=== PATIENT | female | born 2000 | race Caucasian/White ===

== ENCOUNTER → 2020-10-13 | Outpatient (CLI) | payer OTHER | LOC: LAB 15:16 | PROVIDERS: ATTEND Nurse Practitioner Family | DX: R79.89 Other specified abnormal findings of blood chemistry (principal) | CPT/HCPCS: 36415; 84484 ==

== ENCOUNTER 2020-11-02 20:43 | Emergency (ER) | payer OTHER ==
[~2020-11-02] VITALS: Ht 182.9 cm; Wt 69.4 kg
[2020-11-02 20:50] VITALS: BP 133/75
--- NOTE | 2020-11-02 21:00 | PHYS DOC ---
Past History Past Medical History: No Pertinent History Past Surgical History: No Surgical History Alcohol Use: None Adult General Chief Complaint Chief Complaint: HAND PROBLEM HPI HPI Patient is an otherwise healthy 20-year-old female who presents with right thumb pain. States she was playing flag football just before coming in, grabbed a flag and twisted her thumb backwards. Denies any other injuries. States it hurts right at the base of the thumb, 5 out of 10, dull and achy in nature. Review of Systems Review of Systems Review of systems otherwise unremarkable except noted in HPI Allergies Allergies Allergies Coded Allergies Type Severity Reaction Last Updated Verified No Known Drug Allergies 11/02/20 No Physical Exam Physical Exam Constitutional: Well developed, well nourished, no acute distress, non-toxic appearance. [] Skin: Warm, dry, no erythema, no rash. [] Back: No tenderness, no CVA tenderness. [] Extremities: Patient has tenderness at the MTP of the right first digit with no deformity, swelling or bruising noted. Neurovascular exam intact. Neurologic: Alert and oriented X 3, normal motor function, normal sensory function, no focal deficits noted. [] Psychologic: Affect normal, judgement normal, mood normal. [] Current Patient Data Vital Signs Vital Signs Date Time Temp Pulse Resp B/P (MAP) Pulse Ox O2 Delivery O2 Flow Rate FiO2 11/02/20 20:50 97.5 78 16 133/75 (94) 100 Room Air EKG EKG [] Radiology/Procedures Radiology/Procedures [] Heart Score Risk Factors: Risk Factors: DM, Current or recent (<one month) smoker, HTN, HLP, family history of CAD, obesity. Risk Scores: Risk Factors: DM, Current or recent (<one month) smoker, HTN, HLP, family history of CAD, obesity. Course & Med Decision Making Course & Med Decision Making Patient is a 20-year-old female who presents with right thumb plain after getting it caught while playing flag football Vital signs not concerning. Physical exam noted above. Denied need for pain medication or ice at this time. Imaging not concerning. Advised on pain management at home. Advised to follow- up with primary care physician as needed. Advised to cease sports and exercise related activities until symptoms resolve. Gave return precautions to the ED. Patient grateful, verbalized understanding and agreed with plan of discharge. [] Dragon Disclaimer Dragon Disclaimer This electronic medical record was generated, in whole or in part, using a voice recognition dictation system. Departure Departure: Impression: Primary Impression: Thumb pain Disposition: 01 DC HOME SELF CARE/HOMELESS Condition: GOOD Referrals: PCP,HENRIETTA (PCP) Patient Instructions: RICE - Routine Care for Injuries Additional Instructions: Please read the attached information. Please begin to use Tylenol, ibuprofen and ice as needed for pain control at home. Please cease sports and exercise activities until symptoms resolve. Please follow-up with your primary care physician as needed. Please come back to the ED with new or concerning symp toms. JUNE HILL MD Nov 02, 2020 21:00
--- NOTE | 2020-11-02 21:08 | RAD ---
Study: XR HAND_RIGHT 3 VIEWS Indication: Injury. Right thumb pain. Comparison: None. Findings: No acute fracture. Alignment is maintained as are the joint spaces. No retained radiopaque foreign shahana dy. Impression: No acute osseous abnormality. Electronically signed by: MICHAELLE SNYDER MD (11/02/2020 9:06 PM) [facility]
== END 2020-11-02 21:17 | disposition home or self-care (01) ==
LOC: ER 20:43
DX: M79.644 Pain in right finger(s) (principal)
CPT/HCPCS: 73130; 99283

== ENCOUNTER 2020-11-14 04:17 | Emergency (ER) | payer OTHER ==
[~2020-11-14] VITALS: Ht 180.3 cm; Wt 65.9 kg
--- NOTE | 2020-11-14 04:24 | PHYS DOC ---
Past History Past Medical History: No Pertinent History Past Medical History Hx of COVID 2019 Past Surgical History: No Surgical History Alcohol Use: None General Adult HPI: HPI: '.." I got this severe headache..it been constant since sunday night.. I usually never get sick from anything.. I did get COVID in July.. ".. I did take a gram of tylenol at 11 pm. 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 Pt. patient denies any trauma. No history of prior migraine. 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 Patient states onset of headache has been constant. Does seem to have some frontal components and not relieved by [id number] Tylenol and ibuprofen. Patient denies any illicit drug use. Patient denies any history immunosuppression. Did have Covid in July. No history of recent travel outside the [place] area.. No history of trauma. No history of bad food intake. Review of Systems: Review of Systems: Constitutional: Denies fever or chills Eyes: Denies change in visual acuity HENT: Denies nasal congestion or sore throat Respiratory: Denies cough or shortness of breath Cardiovascular: Denies chest pain or edema GI: Complaints of nausea, . Complains of vomiting,. Denies bloody stools or diarrhea : Denies dysuria Musculoskeletal: Denies back pain or joint pain Integument: Denies rash Neurologic: Complains of headache,. Denies focal weakness or sensory changes Endocrine: Denies polyuria or polydipsia Lymphatic: Denies swollen glands Psychiatric: Denies depression or anxiety Family History: Family History: Noncontributory Current Medications: Current Meds: See nursing for home meds Allergies: Allergies: Allergies Coded Allergies Type Severity Reaction Last Updated Verified No Known Drug Allergies 11/02/20 No Physical Exam: PE: Constitutional: Well developed, well nourished, moderate acute distress, non-toxic appearance. [] Red hair HENT: Normocephalic, atraumatic, bilateral external ears normal, oropharynx dry, no oral exudates, nose normal. Eyes: PERRLA, EOMI, conjunctiva normal, no discharge. [] Astigmatism and myopia. Wears contacts. Neck: Normal range of motion, no tenderness, supple, no stridor. [] Cardiovascular: Tachycardia heart rate regular rhythm, no murmur [] Lungs & Thorax: Bilateral breath sounds equal at apex on auscultation [] Abdomen: Bowel sounds epigastric tenderness,, soft, no tenderness, no masses, no pulsatile masses. [] Skin: Warm, dry, no erythema, no rash. [] Back: No tenderness, no CVA tenderness. [] Extremities: No tenderness, no cyanosis, no clubbing, ROM intact, no edema. [] Neurologic: Alert and oriented X 3, normal motor function, normal sensory function, no focal deficits noted. [DTRs +2 patella and brachial. Beader equal. Ambulatory without problems. No field loss. Air conduction more than bone conduction and no lateralization with:128 tunning fork Psychologic: Affect anxious, judgement normal, mood normal. [] EKG: EKG: My interpretation of EKG shows a sinus tachycardia. There is some nonspecific T wave changes in anterior leads. [] Radiology/Procedures: Radiology/Procedures: [][place] [address] IMAGING REPORT Signed PATIENT: SYDNIE GOLDBERG ACCOUNT: [id number] : 2000 LOCATION: ER AGE: 20 SEX: F EXAM STATUS: REG ER ORD. PHYSICIAN: AL FLORENCE MD REASON: severe headache- frontal, x 3 days PROCEDURE: CT HEAD AND MAXILLOFACIAL WO CT head without contrast: Reason for examination: Severe frontal headache for 3 days. Helical images were obtained through the brain. No contrast was administered. Ventricular systems are symmetric and not dilated. No midline shift is seen. There is no evidence of intracranial hemorrhage, infarct, mass or edema. No abnormalities of seen at the orbits. The paranasal sinuses and mastoid air cells are clear. No acute skull abnormality is are seen. IMPRESSION: No acute intracranial abnormalities evident. CT maxillofacial without contrast: Helical images were obtained through the maxillofacial structures with no contrast administered. Reconstruction was performed in sagittal and coronal planes. The paranasal sinuses are clear and the bae of the sinuses are intact. No abnormalities of seen at the orbital structures. Zygomatic arches are intact. Nasal bones are intact. No abnormality seen at the mandible. No abnormality seen in the visualized portion of the cervical spine. Temporomandibular joints are symmetric. There does appear to be deviation of the nasal septum to the right. Nasal turbinates are symmetric. IMPRESSION: Deviation of the nasal septum to the right. No acute sinus disease. No acute maxillofacial abnormality evident. Exposure: One or more of the following individualized dose reduction techniques were utilized for this examination: 1. Automated exposure control 2. Adjustment of the mA and/or kV according to patient size 3. Use of iterative reconstruction technique. Electronically signed by: Adelaide Nielson MD (11/14/2020 5:30 AM) [facility] DICTATED AND SIGNED BY: ADELAIDE NIELOSN MD DATE: 11/14/20524 CC: AL FLORENCE MD; PCP,NO ~MTH0 0 Heart Score: C/O Chest Pain: N/A HEART Score for Chest Pain: HEART Score for Chest Pain Response (Comments) Value History Slighlty/Non-Suspicious 0 ECG Nonspecific Repolarizatio 1 Age < 45 0 Risk Factors No Risk Factors 0 Troponin < Normal Limit 0 Total 1 Risk Factors: Risk Factors: DM, Current or recent (<one month) smoker, HTN, HLP, family history of CAD, obesity. Risk Scores: Score 0 - 3: 2.5% MACE over next 6 weeks - Discharge Home Score 4 - 6: 20.3% MACE over next 6 weeks - Admit for Clinical Observation Score 7 - 10: 72.7% MACE over next 6 weeks - Early Invasive Strategies Course & Med Decision Making: Course & Med Decision Making Pertinent Labs and Imaging studies reviewed. (See chart for details) Discussed risk and benefits of spinal tap. Patient declines spinal tap at this time. Patient reports marked improvement of symptoms after Toradol and Compazine with Benadryl. Patient requesting discharge. Patient take Zofran 8 mg up to 4 times a day for active nausea and vomiting. Clear fluids. Tylenol and ibuprofen for pain. For marked pain may take Vicoprofen. Must have reexam if no improvement. Clear fluid diet until nausea and vomiting has resolved completely. No solids or milk products allow bowel rest. Return if any concerns. Follow-up primary care. Impression: 1. Intractable Headache x 3 Days-suspect viral 2. Nausea and Vomiting 3. Viral syndrome seen 4. Dehydration [] Dragon Disclaimer: Dragon Disclaimer: This electronic medical record was generated, in whole or in part, using a voice recognition dictation system. Departure Departure: Referrals: PCP,NO (PCP) Scripts Hydrocodone/Ibuprofen (HYDROCODONE-IBUPROFEN 7.5-200 ) 1 Each Tablet 1 TAB PO PRN Q6HRS PRN for PAIN, #30 TAB 0 Refills Prov: AL FLORENCE MD 11/14/20 Ondansetron Hcl (ZOFRAN) 4 Mg Tablet 8 MG PO QID for nausea and vomiting, #30 TAB Prov: AL FLORENCE MD 11/14/20 Dragon Disclaimer This chart was dictated in whole or in part using Voice Recognition software in a busy, high-work load, and often noisy Emergency Department environment. It may contain unintended and wholly unrecognized errors or omissions. AL FLORENCE MD Nov 14, 2020 04:24
[2020-11-14 04:30] VITALS: BP 130/69
[2020-11-14] MEDS ORDERED: ONDANSETRON PF 4 MG/2 ML VIAL. IVP ONE (05:00)
[2020-11-14] MEDS ORDERED: FAMOTIDINE 20 MG/2 ML VIAL IVP ONE (05:00)
[2020-11-14] MEDS ORDERED: IV RINGERS SOLUTION,LACTATED 1,000 ML IV SCH (05:00)
[2020-11-14 05:15] LABS: BASO # 0.1 x10^3/uL (0.0-0.2); BASO % 1 % (0-3); EOS # 0.1 x10^3/uL (0.0-0.7); EOS % 0 % (0-3); HEMATOCRIT 42.6 % (36.0-47.0); HEMOGLOBIN 13.7 g/dL (12.0-15.5); LYMPH # 0.7 x10^3/uL (1.0-4.8); LYMPH % 5 % (24-48); MEAN CORPUSCULAR HEMOGLOBIN 29 pg (25-35); MEAN CORPUSCULAR HGB CONC 32 g/dL (31-37); MEAN CORPUSCULAR VOLUME 90 fL (79-100); MONO # 0.9 x10^3/uL (0.0-1.1); MONO % 6 % (0-9); NEUT # 13.3 x10^3uL (1.8-7.7); NEUT % 89 % (31-73); PLATELET COUNT 281 x10^3/uL (140-400); RED BLOOD COUNT 4.72 x10^6/uL (3.50-5.40); RED CELL DISTRIBUTION WIDTH 13.6 % (11.5-14.5); WHITE BLOOD COUNT 14.9 x10^3/uL (4.0-11.0)
[2020-11-14 05:30] LABS: CREATININE 0.8 mg/dL (0.6-1.0); GFR 89.7; POTASSIUM 3.7 mmol/L (3.5-5.1)
--- NOTE | 2020-11-14 05:32 | RAD ---
CT head without contrast: Reason for examination: Severe frontal headache for 3 days. Helical images were obtained through the brain. No contrast was administered. Ventricular systems are symmetric and not dilated. No midline shift is seen. There is no evidence of intracranial hemorrhage, infarct, mass or edema. No abnormalities of seen at the orbits. The paranasa l sinuses and mastoid air cells are clear. No acute skull abnormality is are seen. IMPRESSION: No acute intracranial abnormalities evident. CT maxillofacial without contrast: Helical images were obtained through the maxillofacial structures with no contrast administered. Scotty nstruction was performed in sagittal and coronal planes. The paranasal sinuses are clear and the bae of the sinuses are intact. No abnormalities of seen at the orbital structures. Zygomatic arches are intact. Nasal bones are intact. No abnormality seen at t he mandible. No abnormality seen in the visualized portion of the cervical spine. Temporomandibular j oints are symmetric. There does appear to be deviation of the nasal septum to the right. Nasal turbin ates are symmetric. IMPRESSION: Deviation of the nasal septum to the right. No acute sinus disease. No acute maxillofacial abnormalit y evident. Exposure: One or more of the following individualized dose reduction techniques were utilized for thi s examination: 1. Automated exposure control 2. Adjustment of the mA and/or kV according to patient size 3. Use of iterative reconstruction technique. Electronically signed by: Adelaide Harmon MD (11/14/2020 5:30 AM) [facility]
[2020-11-14 05:40] LABS: ALBUMIN 3.9 g/dL (3.4-5.0); DIRECT BILIRUBIN 0.1 mg/dL (0.0-0.2); TOTAL BILIRUBIN 0.4 mg/dL (0.2-1.0); TOTAL PROTEIN 7.6 g/dL (6.4-8.2)
--- NOTE | 2020-11-14 05:47 | RAD ---
Acute abdominal series: Reason for examination: Nausea and vomiting. The heart size is normal. Mediastinum is unremarkable. Lung dillard are clear. No acute bony abnormali ties are seen in the thorax. In the abdomen, there is no gross organomegaly. Psoas muscles are symmetric. The bowel gas pattern is nonspecific with no evidence of obstruction. No abnormal calcifications are identified. No acute bon y abnormalities are seen in the lumbar spine or pelvis. IMPRESSION: No acute cardiopulmonary disease. Nonspecific nonobstructive bowel gas pattern. Electronically signed by: Adelaide Harmon MD (11/14/2020 5:45 AM) [facility]
[2020-11-14] MEDS ORDERED: KETOROLAC 30 MG/ML VIAL. ONE (06:12)
--- NOTE | 2020-11-14 06:18 | EKG ---
[facility] ED [facility] [address] [place] [id number] Test Date: 2020-11-14 Test Time: 04:35:56 Pat Name: SYDNIE GOLDBERG Department: Room: Gender: F [employer] Utility Worker: : 2000 Requested By: AL FLORENCE Order Number: [id number] Reading MD: Measurements Intervals [place] Rate: 112 P: 8 IA: 110 QRS: 83 QRSD: 82 T: -8 QT: 316 QTc: 433 Interpretive Statements SINUS TACHYCARDIA T ABNORMALITY IN ANTEROLATERAL LEADS INFEROLATERAL LEADS ABNORMAL ECG RI6.02 No previous ECG available for comparison
[2020-11-14] MEDS ORDERED: ONDA4TAB7 PO (06:24)
[2020-11-14] MEDS ORDERED: HYDR-1179 PO (06:24)
[2020-11-14] MEDS ORDERED: KETOROLAC 30 MG/ML VIAL. IVP ONE (06:30)
[2020-11-14] MEDS ORDERED: diphenhydrAMINE 50 MG/ML VIAL IVP ONE (07:00)
[2020-11-14] MEDS ORDERED: PROCHLORPERAZINE 10 MG/2 ML VIAL. IV ONE (07:00)
[2020-11-14 07:41] LABS: BARBITURATES NEG (NEG); BENZODIAZEPINES NEG (NEG); CANNABINOIDS NEG (NEG); COCAINE NEG (NEG); METHADONE NEG (NEG); OPIATES NEG (NEG); PHENCYCLIDINE NEG (NEG)
[2020-11-14 07:42] LABS: AMPHETAMINE/METHAMPHETAMINE NEG (NEG)
[2020-11-14 08:02] LABS: BACTERIA,URINE FEW /HPF (0-FEW); BILIRUBIN,URINE NEG (NEG); CLARITY,URINE CLEAR; COLOR,URINE YELLOW; GLUCOSE,URINE NEG (NEG); NITRITE,URINE NEG (NEG); RBC,URINE OCC /HPF (0-2); SQUAMOUS EPITHELIAL CELL,UR MOD /LPF; UROBILINOGEN,URINE 0.2 mg/dL (0.2 mg/dL)
== END 2020-11-14 06:55 | disposition home or self-care (01) ==
LOC: ER 04:17
DX: B34.9 Viral infection, unspecified (principal); E86.0 Dehydration; R00.0 Tachycardia, unspecified
CPT/HCPCS: 36415; 70450; 70486; 74022; 80048; 80076; 80307; 81001; 81025; 83690; 84484; 85025; 85610; 85730; 86140; 93005; 96361; 96374; 96375; 99285; J0780; J1200; J1885; J2405; J3490; J7120

== ENCOUNTER → 2021-10-03 | Outpatient (CLI) | payer OTHER, BC ==
[~2021-10-03] MED LIST: HYDR-1179 PO; ONDA4TAB7 PO
== END ==
LOC: LAB 10:31
PROVIDERS: ATTEND Nurse Practitioner Family
DX: R52 Pain, unspecified (principal); R50.9 Fever, unspecified
CPT/HCPCS: 36415; 84484

== ENCOUNTER 2021-10-25 22:36 | Emergency (ER) | payer OTHER, BC ==
[~2021-10-25] VITALS: Ht 180.3 cm; Wt 69.8 kg
--- NOTE | 2021-10-25 23:29 | RAD ---
XR SHOULDER_LEFT 2+ VIEWS 10/25/2021 11:17 PM INDICATION: Injury from fall on left shoulder COMPARISON: None available. TECHNIQUE: 3 views of the left shoulder are provided. FINDINGS/ IMPRESSION: There is no acute fracture or dislocation. There may be a tiny 2 mm metal clip adjacent to the inferi or glenoid. Correlate with prior surgery. Joint spaces are maintained. Bone mineralization is within normal limits. Regional soft tissues are within normal limits. There is no soft tissue gas or osseous erosion. No radiopaque foreign body. Electronically signed by: Kalie Jon MD (10/25/2021 11:27 PM) [facility]
--- NOTE | 2021-10-25 23:32 | PHYS DOC ---
Past History Past Medical History: No Pertinent History Past Surgical History: Other Additional Past Surgical Histo: left shoulder dislocation X 2 Alcohol Use: None Adult General Chief Complaint Chief Complaint: UPPER EXTREMITY INJURY HPI HPI Patient is a 21-year-old female with a past medical history significant for multiple episodes of left shoulder dislocation and labral repair who presents concerned that she dislocated her shoulder again. States he was playing football just before coming to the emergency department and fell on an outstretched hand and felt as if it dislocated. Denies any other injuries. Did not take any medications. Review of Systems Review of Systems Review of systems otherwise unremarkable except noted in HPI Allergies Allergies Allergies Coded Allergies Type Severity Reaction Last Updated Verified hydromorphone Allergy Unknown 10/25/21 Yes morphine Allergy Unknown 10/25/21 Yes Physical Exam Physical Exam Constitutional: Well developed, well nourished, no acute distress, non-toxic appearance. [] HENT: Normocephalic, atraumatic, bilateral external ears normal, oropharynx moist, no oral exudates, nose normal. [] Eyes: PERRLA, EOMI, conjunctiva normal, no discharge. [] Neck: Normal range of motion, no tenderness, supple, no stridor. [] Cardiovascular:Heart rate regular rhythm, no murmur [] Lungs & Thorax: Bilateral breath sounds clear to auscultation [] Abdomen: Bowel sounds normal, soft, no tenderness, no masses, no pulsatile masses. [] Skin: Warm, dry, no erythema, no rash. [] Back: No tenderness, no CVA tenderness. [] Extremities: Mild generalized tenderness about the shoulder with no obvious bruising, deformities, no cyanosis, no clubbing, ROM intact, no edema neurovascular exam intact. [] Neurologic: Alert and oriented X 3, normal motor function, normal sensory function, no focal deficits noted. [] Psychologic: Affect normal, judgement normal, mood normal. [] Current Patient Data Vital Signs Vital Signs Date Time Temp Pulse Resp B/P (MAP) Pulse Ox O2 Delivery O2 Flow Rate FiO2 10/25/21 22:59 98.6 116 18 145/68 (93) 97 Room Air EKG EKG [] Radiology/Procedures Radiology/Procedures [] Heart Score C/O Chest Pain: No Risk Factors: Risk Factors: DM, Current or recent (<one month) smoker, HTN, HLP, family history of CAD, obesity. Risk Scores: Risk Factors: DM, Current or recent (<one month) smoker, HTN, HLP, family history of CAD, obesity. Course & Med Decision Making Course & Med Decision Making Patient is a 21-year-old female with several episodes of shoulder dislocation in the past who presents concern for shoulder dislocation after playing football Vital signs initially notable for tachycardia which resolved in the ED. Physical exam noted above. Patient denied need for pain medicine, splint or sling. States she is done this several times and does not like wearing them. Imaging with no acute osseous abnormalities. Discussed findings with patient. Discussed symptom treatment at home. Discussed following up with primary care physician and need for outpatient MRI. Gave return precautions to the ED. Patient grateful, verbalized understanding and agreed with plan of discharge. [] Dragon Disclaimer Dragon Disclaimer This electronic medical record was generated, in whole or in part, using a voice recognition dictation system. Departure Departure: Impression: Primary Impression: Shoulder pain Disposition: HOME / SELF CARE / HOMELESS Condition: GOOD Referrals: PCP,HENRIETTA (PCP) YANCY RAMOS Patient Instructions: RICE - Routine Care for Injuries, Shoulder Pain Additional Instructions: Thank you for coming into the emergency department tonight and allowing us to take care of you. Please read the attached information carefully to go over things that we discussed. You can start Tylenol, ibuprofen and ice as needed. You can wear sling as needed for protection and stabilization. Please cease strenuous exercise activity given your history of multiple dislocations. Please follow-up with your primary care physician to discuss your ED visit and need for outpatient MRI. Please come back with new or concerning symptoms as discussed. JUNE HILL MD Oct 25, 2021 23:32
[2021-10-25 23:58] VITALS: BP 142/62
== END 2021-10-26 | disposition home or self-care (01) ==
LOC: ER 22:36
DX: M25.512 Pain in left shoulder (principal); Z88.5 Allergy status to narcotic agent; W18.39XA Other fall on same level, initial encounter; Y93.01 Activity, walking, marching and hiking; Y92.89 Other specified places as the place of occurrence of the external cause; Y99.8 Other external cause status
CPT/HCPCS: 73030; 99283